=== PATIENT | female | born 1955 | race Caucasian/White ===

== ENCOUNTER 2021-11-30 13:23 | Emergency (ER) | payer MEDICARE, SELFPAY ==
[2021-11-30] VITALS (12 sets, daily range): BP systolic 116–163; BP diastolic 57–98; PULSE 62–110; RESP 18–24; TEMP 36.6; O2SAT 89–100; BMI 30.1
--- NOTE | 2021-11-30 13:52 | XR_ITS ---
WS: [email or web address] Exam: XR chest 1V portable [id number] Date/Time of Exam: 11/30/2021 1:52 PM Reason For Exam: dyspnea No priors. Cardiac enlargement with increased pulmonary vascularity. Small bibasal pleural effusions are noted m ost marked on the left. The lungs are fully inflated. The mediastinum and osseous thorax are unremark able. XR/XR chest 1V portable [id number] IMPRESSION: 1. Mild cardiac enlargement with increased pulmonary vascularity. Bibasal pleur al effusions. Mild CHF considered likely.
--- NOTE | 2021-11-30 13:52 | ECG_ITS ---
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 Measurements Intervals [place] Rate: 100 P: 81 AL: 127 QRS: 71 QRSD: 118 T: 225 QT: 335 QTc: 433 Interpretive Statements SINUS TACHYCARDIA POSSIBLE LEFT ATRIAL ENLARGEMENT [-0.1mV P-WAVE IN V1/V2] ANTEROSEPTAL MYOCARDIAL INFARCTION , PROBABLY OLD [40+ ms Q WAVE IN V1-V4] MODERATE T-WAVE ABNORMALITY, CONSIDER LATERAL ISCHEMIA [-0.1+ mV T-WAVE IN I/aVL/V5/V6] MODERATE T-WAVE ABNORMALITY, CONSIDER INFERIOR ISCHEMIA [-0.1+ mV T-WAVE IN II/aVF] No previous ECG available for comparison Electronically Signed On 11-30-2021 17:23:43 CDT by Matteo Hahn M.D. [id number]
--- NOTE | 2021-11-30 14:27 | ED_ITS ---
HPI - General Adult General: Chief complaint: Shortness of Breath/Dyspnea Stated complaint: Short of breath Time Seen by Provider: 11/30/21 13:52 History of Present Illness: Patient is a 65-year-old female states emergency room 2 weeks of worsening dyspnea and nonproductive cough. Patient tells me that she has been having muscle aches in the last few days. Patient reports sore throat nasal congestion but denies any chest pain, palpitation, abdominal complaints, diarrhea, melena/hematochezia. In route, patient was noted to have an oxygen O2 sat of 89% on room air. However patient never used oxygen. Onset:1 week Duration:1 week Location:[facility] Severity:mild/moderate Associated symptoms: Reports dyspnea; Deny chest pain, nausea, rash, palpitations or vomiting Review of Systems Const: Denies: fever(s) or chills Eyes: Denies: change in vision ENMT: Denies: mouth pain Card: Denies: chest pain or palpitations Resp: Reports: dyspnea and non-productive cough GI: Denies: abdominal pain, nausea, vomiting or diarrhea : Denies: dysuria Musc: Denies: extremity pain Skin/Breast: Denies: rash or new lesions Neuro: Denies: weakness in extremities Psych: Reports: other (Normal mood) Alonzo/Lymph: Denies: easy bruising PFSH ED PFSH: Medical History No pertinent past medical history Social History Smoking and tobacco status: never smoked Alcohol intake: never Substance/Drug Use: never Physical Exam Const: COMMON NORMALS: alert HENMT: COMMON NORMALS: atraumatic HEAD & SCALP: atraumatic MOUTH: moist mucous membranes not abnormal Eye: COMMON NORMALS: EOMs intact bilaterally and conjunctivae normal CONJUNCTIVA: Yes conjunctivae normal Neck/C-Spine: COMMON NORMALS: full ROM and supple Resp: COMMON NORMALS: normal respiratory effort OTHER: + mild b/l expiratory w heezes Cardio: COMMON NORMALS: regular rate RATE: regular rate GI: COMMON NORMALS: Soft to palpation and non-tender PALPATION: Yes Soft to palpation Extremity: COMMON NORMALS: full ROM Neuro: SENSORIUM/ORIENTATION: Yes alert MOTOR EXAM: No Abnormal motor strength present and Other motor observations present (no focal motor deficits) Psych: COMMON NORMALS: speech normal SPEECH: Yes normal speech MOOD & AFFECT: Yes euthymic mood Course Vital Signs: Vital signs: Vital Signs Temperature 97.8 F 11/30/21 13:48 Pulse Rate 97 11/30/21 18:44 Respiratory Rate 18 11/30/21 18:44 Blood Pressure 131/64 11/30/21 18:30 Pulse Oximetry 93 11/30/21 18:44 MDM - General Adult Medical Decision Making 65-year-old female presenting to the emergency with shortness of breath, cough and concerns for hypoxemia. On physical exam, patient noted to be satting at 93% on room air in the ER with mild bilateral wheezes with mild increased work of breathing. Troponin x2 within normal limit. EKG x2 within normal limit. Given the fact that patient continues to be tachycardic, decision was made to order CTA for evaluation of PE. However, at 6:58 PM, prior to obtaining the CT scan, patient declined further evaluation and elects to go home. I explained to the patient the risks of leaving against medical advice which includes sudden respiratory decompensation and even possible . However patient elects to continue to do so. Since patient she was to like to go home, I will give patient a prescription for albuterol and prednisone given worsening cough and dyspnea. She tells me that she will fall come back to the emergency room if her dyspnea gets worse. Rx albuterol inhaler and prednisone PRN dyspean and cough Patient electing to leave AMA. Patient counseled regarding risks of leaving including severe morbidity, brain , hypoxia, arrythmia, , chest pain, or any other unwanted consequences of leaving against medical advice today. Berna gonzalez verbalizes understanding of the risks and still wishes to leave AMA. Signed AMA paperwork. Patient advised that patient is welcome to return at any time. Was instructed that patient may come back if symptoms continue to persist and that emergent adverse conditions have not fully been ruled out. Patient is A&Ox3 and has capacity and is of sound mind to make decisions. Lab Data : 11/30/21 14:35 11/30/21 15:25 Radiology Impressions Chest X-Ray 11/30/21 13:52 IMPRESSION: 1. Mild cardiac enlargement with increased pulmonary vascularity. Bibasal pleural effusions. Mild CHF considered likely. Laboratory Results WBC 10.0 10^3/uL (4.0-10.0) 11/30/21 14:35 RBC 4.42 10^6/uL (4.1-5.3) 11/30/21 14:35 Hgb 13.2 g/dL (11.5-15.3) 11/30/21 14:35 Hct 41.2 % (37.0-47.0) 11/30/21 14:35 MCV 93.2 fl (81-99) 11/30/21 14:35 MCH 29.9 pg (28.0-34.0) 11/30/21 14:35 MCHC 32.0 g/dL (30.0-36.0) 11/30/21 14:35 RDW 13.5 % (12.1-15.1) 11/30/21 14:35 Plt Count 365 10^3/cmm (130-400) 11/30/21 14:35 MPV 10.2 fL (7.4-10.4) 11/30/21 14:35 Neut % (Auto) 76.0 % 11/30/21 14:35 Lymph % (Auto) 14.6 % 11/30/21 14:35 [place] % (Auto) 8.1 % 11/30/21 14:35 Eos % (Auto) 0.4 % 11/30/21 14:35 Baso % (Auto) 0.4 % 11/30/21 14:35 Neut # (Auto) 7.59 10^3/uL (1.8-7.7) 11/30/21 14:35 Lymph # (Auto) 1.5 10^3/uL (0.8-4.8) 11/30/21 14:35 [place] # (Auto) 0.8 10^3/uL (0.2-0.9) 11/30/21 14:35 Eos # (Auto) 0.0 10^3/uL (0.0-0.8) 11/30/21 14:35 Baso # (Auto) 0.0 10^3/uL (0.0-0.1) 11/30/21 14:35 Nucleated RBC % (auto) 0 % 11/30/21 14:35 Nucleated RBCs # 0.0 /100WBC 11/30/21 14:35 Sodium 137 mmol/L (136-145) 11/30/21 15:25 Potassium 3.8 mmol/L (3.5-5.1) 11/30/21 15:25 Chloride 99 mmol/L (98-107) 11/30/21 15:25 Carbon Dioxide 27 mmol/L (22-29) 11/30/21 15:25 Anion Gap 14.8 (5-19) 11/30/21 15:25 BUN 4 mg/dL (8-23) L 11/30/21 15:25 Creatinine 0.5 mg/dL (0.5-0.9) 11/30/21 15:25 GFR Calculation 123.1 mL/min (90-130) 11/30/21 15:25 Glucose 92 mg/dL (65-115) 11/30/21 15:25 Calculated Osmolality 281 mOsm/kg (285-295) L 11/30/21 15:25 Calcium 9.1 mg/dL (8.5-10.5) 11/30/21 15:25 Troponin T Baseline 9 ng/L (0-10) 11/30/21 15:25 Troponin T 120 Minute 8.24 ng/L (0-10) 11/30/21 17:08 Delta Troponin T -0.76 ABS# (0-10) L 11/30/21 17:08 C-Reactive Protein 91.0 mg/L (0.0-4.9) H 11/30/21 15:25 NT-Pro-B Natriuret Pep 275 pg/mL (0-125) H 11/30/21 15:25 Procalcitonin 0.08 ng/mL (0-0.5) 11/30/21 15:25 Nasal Influ A H1 2009 PCR Not detected (NOT DETECT) 11/30/21 14:55 Adenovirus (PCR) Not detected (NOT DETECT) 11/30/21 14:55 C. pneumoniae DNA (PCR) Not detected (NOT DETECT) 11/30/21 14:55 Coronavirus 229E (PCR) Not detected (NOT DETECT) 11/30/21 14:55 Human Metapneumovir PCR Not detected (NOT DETECT) 11/30/21 14:55 Influenza A (H1) PCR Not detected (NOT DETECT) 11/30/21 14:55 Influenza A (H3) PCR Not detected (NOT DETECT) 11/30/21 14:55 Influenza Type A (PCR) Not detected (NOT DETECT) 11/30/21 14:55 Influenza Type B (PCR) Not detected (NOT DETECT) 11/30/21 14:55 M. pneumoniae (PCR) Not detected (NOT DETECT) 11/30/21 14:55 Parainfluenza 1 (PCR) Not detected (NOT DETECT) 11/30/21 14:55 Parainfluenza 2 (PCR) Not detected (NOT DETECT) 11/30/21 14:55 Parainfluenza 3 (PCR) Not detected (NOT DETECT) 11/30/21 14:55 Parainfluenza 4 (PCR) Not detected (NOT DETECT) 11/30/21 14:55 RSV Type A (PCR) Not detected (NOT DETECT) 11/30/21 14:55 RSV Type B (PCR) Not detected (NOT DETECT) 11/30/21 14:55 Entero/Rhino (PCR) Not detected (NOT DETECT) 11/30/21 14:55 SARS-CoV-2 (PCR) Not detected (NOT DETECT) 11/30/21 14:55 Imaging Data Other Imaging: Radiologist's impression: [place] [id number] XRay Report Signed Patient: Tashi Scott Unit #: [id number] : 1955 Age/Sex: 65 / F ADM Date: 11/30/21 Loc: ER Room/Bed: Attending Dr: Ordering Provider/Ordering MD: Qasim Campa MD Date of Service: 11/30/21 Procedure(s): XR chest 1V portable [id number] Accession Number(s): [id number] Report Number: [id number] WS: [email or web address] Exam: XR chest 1V portable [id number] Date/Time of Exam: 11/30/2021 1:52 PM Reason For Exam: dyspnea No priors. Cardiac enlargement with increased pulmonary vascularity. Small bibasal pleural effusions are noted most marked on the left. The lungs are fully inflated. The mediastinum and osseous thorax are unremarkable. XR/XR chest 1V portable [id number] IMPRESSION: 1. Mild cardiac enlargement with increased pulmonary vascularity. Bibasal pleural effusions. Mild CHF considered likely. ? Dictated By: Roberto Carney DO Signed By: Roberto Carney DO Signed Date/Time: 11/30/211419 DD/ 17 Discharge Plan Discharge Patient Disposition: Left Against Medical Advice Clinical Impression: Acute dyspnea, Cough Condition: Stable Prescriptions: New albuterol sulfate 90 mcg/actuation HFA aerosol inhaler 2 inh inhalation Q4H PRN (Reason: shortness of breath or wheezing) 5 Days Qty: 6.7 0RF prednisone 50 mg tablet 50 mg PO DAILY PRN (Reason: copd exacerbation) 5 Days Qty: 5 0RF No Action Chlor-Tablet 4 mg Tablet 8 mg PO Q4H PRN (Reason: Allergy Symptoms) 0RF Tylenol Ex Str Rapid Release 500 mg Tablet 1,000 mg PO Q6H PRN (Reason: Pain) 0RF ibuprofen 200 mg Tablet 600 - 800 mg PO Q6H PRN (Reason: Pain) 0RF phenylephrine HCl 10 mg Tablet 20 mg PO .EVERY 4-8 HOURS PRN (Reason: Sinus Symptoms) 0RF Coding Level of Care Code ED Call Worker Person for Chg Fwd Exam Comprehensive
[2021-11-30 14:47] LABS: Basophils % 0.4 %; Eosinophils % 0.4 %; Hematocrit 41.2 % (37.0-47.0); Hemoglobin 13.2 g/dL (11.5-15.3); Lymphocytes # 1.5 10^3/uL (0.8-4.8); Lymphocytes % 14.6 %; Mean Corpuscular Hemoglobin 29.9 pg (28.0-34.0); Mean Corpuscular Volume 93.2 fl (81-99); Mean Platelet Volume 10.2 fL (7.4-10.4); Monocytes # 0.8 10^3/uL (0.2-0.9); Monocytes % 8.1 %; Neutrophils # 7.59 10^3/uL (1.8-7.7); Nucleated Red Blood Cells % 0 %; Platelet Count 365 10^3/cmm (130-400); Red Blood Count 4.42 10^6/uL (4.1-5.3); Red Cell Distribution Width 13.5 % (12.1-15.1)
--- NOTE | 2021-11-30 15:52 | ECG_ITS ---
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 Measurements Intervals [place] Rate: 100 P: 85 AK: 131 QRS: 75 QRSD: 118 T: 235 QT: 344 QTc: 444 Interpretive Statements SINUS TACHYCARDIA POSSIBLE LEFT ATRIAL ENLARGEMENT [-0.1mV P-WAVE IN V1/V2] ANTEROSEPTAL MYOCARDIAL INFARCTION , PROBABLY OLD [40+ ms Q WAVE IN V1-V4] MODERATE T-WAVE ABNORMALITY, CONSIDER LATERAL ISCHEMIA [-0.1+ mV T-WAVE IN I/aVL/V5/V6] MODERATE T-WAVE ABNORMALITY, CONSIDER INFERIOR ISCHEMIA [-0.1+ mV T-WAVE IN II/aVF] Compared to ECG 11/30/2021 14:01:53 No significant changes Electronically Signed On 11-30-2021 17:26:54 CDT by Matteo Hahn M.D. [id number]
[2021-11-30 16:13] LABS: Troponin(5th) Baseline 9 ng/L (0-10)
[2021-11-30 16:19] LABS: NT Pro B Type Natriuretic Pept 275 pg/mL (0-125); Procalcitonin 0.08 ng/mL (0-0.5)
[2021-11-30 16:31] LABS: Anion Gap 14.8 (5-19); Blood Urea Nitrogen 4 mg/dL (8-23); Calcium 9.1 mg/dL (8.5-10.5); Carbon Dioxide 27 mmol/L (22-29); Chloride 99 mmol/L (98-107); Creatinine Clr Calc Pharmacy 67.0963; Glomerular Filtration Rate 123.1 mL/min (90-130); Glucose 92 mg/dL (65-115); Osmolality Calculated 281 mOsm/kg (285-295); Potassium 3.8 mmol/L (3.5-5.1); Sodium 137 mmol/L (136-145)
[2021-11-30 16:48] LABS: Adenovirus Not Detected (NOT DETECT); Chlamydia Pneumoniae Not Detected (NOT DETECT); Coronavirus 229E,HKU1,NL63,OC4 Not Detected (NOT DETECT); Human Metapneumovirus Not Detected (NOT DETECT); Human Rhinovirus/Enterovirus Not Detected (NOT DETECT); Influenza A Not Detected (NOT DETECT); Influenza A H1 Not Detected (NOT DETECT); Influenza A H1-2009 Not Detected (NOT DETECT); Influenza A H3 Not Detected (NOT DETECT); Influenza B Not Detected (NOT DETECT); Mycoplasma Pneumoniae Not Detected (NOT DETECT); Parainfluenza Virus Type 1 Not Detected (NOT DETECT); Parainfluenza Virus Type 2 Not Detected (NOT DETECT); Parainfluenza Virus Type 3 Not Detected (NOT DETECT); Parainfluenza Virus Type 4 Not Detected (NOT DETECT); Respiratory Syncytial Virus A Not Detected (NOT DETECT); Respiratory Syncytial Virus B Not Detected (NOT DETECT); SARS-COV-2 Not Detected (NOT DETECT)
[2021-11-30] MEDS: sodium chloride 0.9% 500 ML IV (16:50)
[2021-11-30 18:11] LABS: Troponin 5 2HR 8.24 ng/L (0-10)
[2021-11-30 18:36] LABS: Troponin 5 2HR Delta -0.76 ABS# (0-10)
[2021-11-30] MEDS: ipratropium-albuterol 3 mL Neb INHALATION (18:45)
== END 2021-11-30 19:03 | disposition left against medical advice (07) ==
PROVIDERS: Emergency Provider Emergency Medicine
DX: R06.00 Dyspnea, unspecified (principal); R05.9 Cough, unspecified
CPT/HCPCS: 71045; 80048; 83880; 84145; 84484; 85025; 86140; 87486; 87581; 87633; 93005; 94640; 96361; 96374; 99285; J2930; J7040

== ENCOUNTER 2021-12-03 12:27 | Outpatient (CLI) | payer MEDICARE, SELFPAY ==
--- NOTE | 2021-12-03 12:36 | XR_ITS ---
WS: [email or web address] Exam: XR chest 2V* [id number] Date/Time of Exam: 12/03/2021 12:37 PM Reason For Exam: DYSPNEA Comparison 11/30/2021. Bibasal pleural effusions show slight improvement since the prior study. Mild c ardiac enlargement unchanged. Areas of plaque atelectasis in the right and left lower lung zones. Coa rse interstitial markings and possible honeycombing seen in the upper lung zones. Bony structures are intact. The mediastinum is not widened. XR/XR chest 2V* [id number] IMPRESSION: 1. Slightly improved bibasal pleural effusions. 2. Mild cardiac enlargement unchanged. Areas of plaque atelectasis in the bilat eral lower lung zones. 3. Coarsening of interstitial markings and possible honeycombing in the upper l corie zones. CT scanning of the chest might be helpful for a more detailed workup .
== END 2021-12-03 12:28 | disposition home or self-care (01) ==
LOC: RAD 12:30
PROVIDERS: PCP Nurse Practitioner Family; Visit Provider Nurse Practitioner Family
DX: J90 Pleural effusion, not elsewhere classified (principal); I51.7 Cardiomegaly
CPT/HCPCS: 71046

== ENCOUNTER 2021-12-04 12:02 | Outpatient (CLI) | payer MEDICARE, SELFPAY ==
--- NOTE | 2021-12-04 12:13 | CT_ITS ---
WS: [id number] CT CHEST ANGIOGRAPHY WITH REFORMATS HISTORY: DYSPNEA TECHNIQUE: Contiguous axial images are obtained through the chest during arterial injection of intrav enous contrast. Images are reconstructed to evaluate the pulmonary arteries. MIP imaging also reviewe d. All CT scans at [facility] use at least one of these dose optimization techniques: automat ed exposure control; mA and/or kV adjustment per patient size (includes targeted exams where dose is matched to clinical indication); or iterative reconstruction. CONTRAST: Omnipaque 300; 95 mL IV. DLP: 568.01 mGy.cm COMPARISON: None available. Very good opacification of the pulmonary arteries. No filling defect or pulmonary embolism. Normal si ze pulmonary artery. Mild atherosclerotic plaque within the thoracic aorta. There is no RIGHT heart s train. Normal size heart. There is a small but circumferential pericardial effusion. Small bilateral pleural effusions are also present with pulmonary venous congestion. Compressive atelectasis at the L EFT lung base. No adenopathy. Very mildly prominent lymphoid tissue at the hilar regions. No adrenal nodule. Visualized upper abdomen is negative. CT/CT angio chest PE protcl [id number] IMPRESSION: 1. No pulmonary embolism. 2. Small bilateral pleural effusions, LEFT greater than RIGHT. 3. Small circumferential pericardial effusion 4. Mild pulmonary venous congestion. 5. Subsegmental atelectasis at the lung bases. Notified DONN Love at 12/04/2021 1:40 PM.
[2021-12-04] MEDS: iohexol 350 mg/mL 100 mL Btl IV (13:05)
== END 2021-12-04 12:03 | disposition home or self-care (01) ==
LOC: RAD 12:05
PROVIDERS: PCP Nurse Practitioner Family; Visit Provider Nurse Practitioner Family
DX: R06.00 Dyspnea, unspecified (principal); J90 Pleural effusion, not elsewhere classified; J98.11 Atelectasis
CPT/HCPCS: 71275

== ENCOUNTER 2021-12-21 09:01 | Outpatient (CLI) | payer MEDICARE, SELFPAY ==
--- NOTE | 2021-12-21 09:15 | USCV_ITS ---
Tashi Scott Age: 66 Gender: F : 1955 Exam Date: 12/21/2021 09:38 Ordering Phys: Jaki Marley Technologist: MARIBEL Exam Location: [facility] [place] Indication: Dyspnea/CHF BP: 127 / 76 HR: 98 Rhythm: Sinus Technical Quality: Difficult MEASUREMENTS (Male / Female) Normal Values 2D ECHO LV Diastolic Diameter PLAX 4.2 cm 4.2 - 5.9 / 3.9 - 5.3 cm LV Systolic Diameter PLAX 3.2 cm IVS Diastolic Thickness 0.8 cm 0.6 - 1.0 / 0.6 - 0.9 cm IVS Systolic Thickness 1.2 cm LVPW Diastolic Thickness 0.9 cm 0.6 - 1.0 / 0.6 - 0.9 cm LVPW Systolic Thickness 1.3 cm RV Chamber Size 1.8 cm LVOT Diameter 2.0 cm LV Ejection Fraction 2D Teich 47.9 % LV Ejection Fraction MOD 2C 50.7 % LV Ejection Fraction 2C AL 54.3 % LA Diameter 1.9 cm LA Width 2.4 cm LA Height 3.5 cm RA Width 2.2 cm RA Height 2.9 cm Aorta at Sinotubular Diameter 2.0 cm IVC Diameter 1.5 cm M-MODE Aortic Annulus Diameter 2.2 cm LA Ao Ratio MM 0.7 MV E Point Septal Separation 0.3 cm DOPPLER AV Peak Velocity 120.0 cm/s LVOT Peak Velocity 110.0 cm/s AV Area Cont Eq vti 3.1 cm squared AV Area Cont Eq pk 2.9 cm squared MV Area PHT 3.6 cm squared Mitral E to A Ratio 0.7 MV E' Velocity 33.0 cm/s Mitral E to MV E' Ratio 6.7 Mitral E to LV E' Lateral Ratio 7.6 Mitral E to LV E' Septal Ratio 6.1 TR Peak Velocity 251.0 cm/s TR Peak Gradient 25.2 mmHg Right Atrial Pressure 3.0 mmHg Pulmonary Artery Systolic Pressu 28.2 mmHg PV Peak Velocity 111.0 cm/s RV Acceleration Time 0.2 s RV Ejection Time 0.2 s RV AcT/ET 0.8 FINDINGS Left Ventricle Technically limited quality echocardiogram because of poor ultrasonic windows. Grossly LV systolic function is normal. Regional wall motion abnormalities cannot be assessed because of poor ultrasonic windows. Grade 1 diastolic dysfunction Right Ventricle Grossly normal Right Atrium Grossly normal. There is an echogenic structure seen in right atrium. Likely artifact. Left Atrium Grossly normal Mitral Valve Grossly normal. Trace mitral regurgitation Aortic Valve Not well-visualized. Tricuspid Valve Grossly normal. Mild tricuspid regurgitation. Pulmonic Valve Not well-visualized Pericardium Normal pericardium without effusion. Aorta Normal ascending aorta dimension. IVC CONCLUSIONS Technically limited quality echocardiogram because of poor ultrasonic windows. Grossly LV systolic function is normal. Grade 1 diastolic dysfunction. There is an echogenic structure seen in right atrium. This is likely artifact. Trace mitral regurgitation. Mild tricuspid regurgitation. No comparison studies are available Matteo Hahn MD (Electronically Signed) Final Date: 25 December 2021 22:55 S
== END 2021-12-21 09:02 | disposition home or self-care (01) ==
LOC: RAD 09:03
PROVIDERS: PCP Nurse Practitioner Family; Visit Provider Nurse Practitioner Family
DX: I50.9 Heart failure, unspecified (principal); R06.00 Dyspnea, unspecified
CPT/HCPCS: 93306

== ENCOUNTER 2022-01-05 10:34 | Outpatient (CLI) | payer MEDICARE, SELFPAY ==
--- NOTE | 2022-01-05 10:58 | MM_ITS ---
WS: [email or web address] SCREENING DIGITAL BREAST TOMOSYNTHESIS MAMMOGRAM WITH CAD HISTORY: SCREENING COMPARISON: 08/03/2018 Bilateral CC and MLO with tomosynthesis views submitted. Synthetic mammography reviewed. Computer aid ed detection analyzed. Breast composition: There are scattered areas of fibroglandular density. No suspicious masses, microc alcifications or architectural distortion. MM/[place] [id number] IMPRESSION: BI-RADS: 1-Negative FOLLOW UP: 1 Year Follow-up
--- NOTE | 2022-01-05 14:08 | PFTS_ITS ---
Date of Study:01/05/22 Date of Dictation: 01/09/22 MECHANICS: Postbronchodilator forced vital capacity (FVC) is reduced. Postbronchodilator forced expiratory volume in one second (FEV1) is severely reduced. FEV1/FVC is reduced. There is no significant response to bronchodilator FLOW VOLUME LOOP: Sloping of expiratory limb suggestive of airflow obstruction. LUNG VOLUMES: not measured DIFFUSING CAPACITY FOR CARBON MONOXIDE: not measured INTERPRETATION: The Spirometry showed severe airflow obstruction. There is no significant response to bronchodilators. Lung volume and Gas transfer measurement may give additional information to rule out entities like emphysema. Correlate Clinically. MTDD
== END 2022-01-05 10:35 | disposition home or self-care (01) ==
LOC: RAD 10:35
PROVIDERS: PCP Nurse Practitioner Family; Visit Provider Nurse Practitioner Family
DX: Z12.31 Encounter for screening mammogram for malignant neoplasm of breast (principal)
CPT/HCPCS: 77063; 77067; 94060

== ENCOUNTER → 2022-02-09 14:01 | Outpatient (BNVA) | payer MEDICARE, SELFPAY | PROVIDERS: PCP Nurse Practitioner Family; Visit Provider Internal Medicine Pulmonary Disease | DX: R06.09 Other forms of dyspnea (principal); J43.9 Emphysema, unspecified; R53.81 Other malaise; Z71.6 Tobacco abuse counseling; J30.9 Allergic rhinitis, unspecified; F17.210 Nicotine dependence, cigarettes, uncomplicated | CPT/HCPCS: 36415; 80053; 82103; 82785; 83880; 85025; 86003; 99204 ==

== ENCOUNTER 2022-04-06 15:08 | Outpatient (CLI) | payer MEDICARE, SELFPAY ==
--- NOTE | 2022-04-06 15:18 | XR_ITS ---
WS: [email or web address] Exam: XR ribs RT 2V* [id number] Date/Time of Exam: 04/06/2022 3:30 PM Reason For Exam: R SIDED RIB PAIN No sign of acute right rib fracture. The right lung is fully expanded and clear. No pulmonary or pleu ral reactive changes are noted. XR/XR ribs RT 2V* [id number] IMPRESSION: 1. No acute right rib fracture or pneumothorax
== END 2022-04-06 15:09 | disposition home or self-care (01) ==
LOC: RAD 15:10
PROVIDERS: PCP Nurse Practitioner Family; Visit Provider Nurse Practitioner Family
DX: R07.81 Pleurodynia (principal)
CPT/HCPCS: 71100

== ENCOUNTER 2023-04-15 12:10 | Outpatient (CLI) | payer MEDICARE, SELFPAY ==
--- NOTE | 2023-04-15 12:22 | XR_ITS ---
WS: [email or web address] DEXA (DUAL ENERGY X-RAY ABSORPTIOMETRY) Bone mineral density was performed using a Control4 machine. HISTORY: OSTEOPOROSIS COMPARISON: None available. Lumbar spine BMD (L1-L4): 0.923 g/cm2 T score: -2.1 Z score: -0.5 Total hip BMD: Left: 0.710 g/cm2. T score: -2.4 Z score: -1.0 Right: 0.695 g/cm2. T score: -2.5 Z score: -1.1 10 year probability of a major osteoporotic fracture is 17.2%. IMPRESSION: OSTEOPOROSIS based upon the WHO classification for females.
--- NOTE | 2023-04-15 13:01 | CT_ITS ---
WS: [email or web address] LDCT LUNG CANCER SCREENING HISTORY: NICOTINE DEPENDENCE, CIGARETTES TECHNIQUE: Axial imaging performed from the apices to 1 cm below the costophrenic angles. Coronal and sagittal reformats are submitted with axial MIP series. All CT scans at [facility] use at least one of these dose optimization techniques: automated exposure control; mA and/or kV adjustment per patient size (includes targeted exams where dose is matched to clinical indication); or iterativ e reconstruction. DLP: 63.90 mGy.cm DIvol: Mean CTDIvol: 1.30 (mGy) COMPARISON: 12/04/2021 Diagnostic quality: Satisfactory Lungs: Hyperinflated lungs. Peripheral reticular nodular thickening in the periphery of the upper neva g roberts. Emphysematous bullous disease. Benign granuloma at the LEFT lung base. No consolidation. No mass or nodules. Heart: Normal size heart with no pericardial effusion.. Other findings: Small mediastinal and hilar lymph nodes. Moderate coronary artery calcifications. IMPRESSION: CT/CT lung screening [id number] LUNG-RADS: 2-Benign Appearance or Behavior FOLLOW UP: 12 Month: Continue annual screening with LDCT OTHER FINDINGS (S MODIFIER): None.
--- NOTE | 2023-04-15 13:03 | MM_ITS ---
WS: [email or web address] BILATERAL 3D TOMOSYNTHESIS DIGITAL SCREENING MAMMOGRAPHY WITH CAD CLINICAL INFORMATION: SCREENING HISTORY: Screening mammogram. No current complaints. COMPARISON: 2021 TECHNIQUE: Bilateral CC and MLO views. FINDINGS: Scattered fibroglandular densities bilaterally. No suspicious focal mass, asymmetry, calcifications, or architectural distortion. No evidence of malignancy. IMPRESSION: MM/[place] [id number] BI-RADS: 1-Negative FOLLOW UP: 1 Year Follow-up Recommend return to annual screening mammography.
== END 2023-04-15 12:11 | disposition home or self-care (01) ==
PROVIDERS: PCP Nurse Practitioner Family; Visit Provider Nurse Practitioner Family
DX: Z12.31 Encounter for screening mammogram for malignant neoplasm of breast (principal); Z78.0 Asymptomatic menopausal state; F17.210 Nicotine dependence, cigarettes, uncomplicated; Z12.2 Encounter for screening for malignant neoplasm of respiratory organs
CPT/HCPCS: 71271; 77063; 77067; 77080

== ENCOUNTER → 2023-04-21 11:10 | Outpatient (BNVA) | payer MEDICARE, SELFPAY | PROVIDERS: PCP Nurse Practitioner Family; Visit Provider Internal Medicine Pulmonary Disease | DX: J43.9 Emphysema, unspecified (principal); Z71.6 Tobacco abuse counseling; J30.2 Other seasonal allergic rhinitis; F17.210 Nicotine dependence, cigarettes, uncomplicated; Z12.2 Encounter for screening for malignant neoplasm of respiratory organs | CPT/HCPCS: 99214 ==

== ENCOUNTER → 2023-08-05 08:32 | Outpatient (BNVA) | payer MEDICARE, SELFPAY | PROVIDERS: PCP Nurse Practitioner Family; Visit Provider Student in an Organized Health Care Education/Training Program | DX: M67.432 Ganglion, left wrist; M18.12 Unilateral primary osteoarthritis of first carpometacarpal joint, left hand | CPT/HCPCS: 73110; 99204 ==

== ENCOUNTER → 2023-11-03 08:27 | Outpatient (BNVA) | payer MEDICARE, SELFPAY | PROVIDERS: PCP Nurse Practitioner Family; Visit Provider Internal Medicine Pulmonary Disease | DX: J44.9 Chronic obstructive pulmonary disease, unspecified (principal); J43.9 Emphysema, unspecified; R06.09 Other forms of dyspnea; T78.40XA Allergy, unspecified, initial encounter; R53.81 Other malaise; Y99.9 Unspecified external cause status; F17.210 Nicotine dependence, cigarettes, uncomplicated; Z71.6 Tobacco abuse counseling | CPT/HCPCS: 99214 ==

== ENCOUNTER → 2023-12-01 08:57 | Outpatient (BNVA) | payer MEDICARE, SELFPAY | PROVIDERS: PCP Nurse Practitioner Family; Visit Provider Internal Medicine Rheumatology | DX: Z79.899 Other long term (current) drug therapy (principal); M81.0 Age-related osteoporosis without current pathological fracture; M15.9 Polyosteoarthritis, unspecified; M47.812 Spondylosis without myelopathy or radiculopathy, cervical region; M47.816 Spondylosis without myelopathy or radiculopathy, lumbar region | CPT/HCPCS: 99204 ==

== ENCOUNTER 2025-02-26 14:55 | Outpatient (CLI) | payer MEDICARE, SELFPAY ==
--- NOTE | 2025-02-26 14:59 | CT_ITS ---
WS: [email or web address] LDCT LUNG CANCER SCREENING TECHNIQUE: Noncontrast CT of the chest with coronal and sagittal reformatted images. CLINICAL INFORMATION: NICOTINE DEPENDENCE, CIGARETTES COMPARISON: None. DLP: 61.90 mGy.cm DIvol: Mean CTDIvol: 1.10 (mGy) All CT scans at [facility] use at least one of these dose optimization techniques: automated exposure control; mA and/or kV adjustment per patient size (includes targeted exams where dose is matched to clinical indication); or iterative reconstruction. FINDINGS: New spiculated irregular lesion in the LEFT upper lobe anteriorly extending to the pleura suspicious for neoplasm. This measures approximately 2.1 x 0.8 cm. This has a suspicious appearance and recommend further evaluation with PET/CT. Nodular fibrosis in the LEFT lung apex similar to previous. Small 4 mm pleural- based nodule LEFT upper lobe anterolaterally Advanced chronic emphysematous change. Calcified granulomas LEFT lower lobe. No mediastinal or hilar lymphadenopathy. No axillary lymphadenopathy. Aortic calcification. Coronary calcification. Small esophageal hiatal hernia. CT/CT lung screening [id number] IMPRESSION: New suspicious spiculated lesion LEFT upper lobe anteriorly. Neoplasm not exclu ded. Recommend further evaluation with PET/CT. LUNG-RADS: 4B-Suspicious FOLLOW UP: PET/CT recommended
== END 2025-02-26 14:56 | disposition home or self-care (01) ==
LOC: RAD 14:57
PROVIDERS: PCP Nurse Practitioner Family; Visit Provider Nurse Practitioner Family
DX: Z12.2 Encounter for screening for malignant neoplasm of respiratory organs (principal); R91.1 Solitary pulmonary nodule; J84.10 Pulmonary fibrosis, unspecified; F17.210 Nicotine dependence, cigarettes, uncomplicated
CPT/HCPCS: 71271

== ENCOUNTER 2025-03-22 08:41 | Outpatient (CLI) | payer MEDICARE, SELFPAY ==
--- NOTE | 2025-03-22 08:59 | PETR_ITS ---
PROCEDURE INFORMATION: Exam: PET/CT Skull Base to Mid-thigh Exam date and time: 03/22/2025 9:50 AM Age: 69 years old Clinical indication: Abnormal findings; New suspicious spiculated lesion left upper lobe anteriorly. ; Additional info: Abnormal CT chest LABS AND CLINICAL REPORTS: Glucose: 105 mg/dl Treatment strategy for malignancy (PET staging): Initial Staging (PI) TECHNIQUE: Imaging protocol: Following at least four-hour fasting and following the injection of radiopharmaceutical, low dose CT images were obtained. Then, PET images were obtained. Attenuation corrected images were constructed using the CT scan. Fused images of PET and CT were reviewed. The standardized uptake values (SUV) reported below are maximum values within a region of interest, expressed in gm/ml. Exam includes orbital meatal line to mid-thigh. SUV normalization method: BodyWeight Radiopharmaceutical: 10.2 mCi F-18 FDG (Fluorodeoxyglucose), IV. Time of imaging post radiopharmaceutical administration: 49 minutes Injection site: LAC COMPARISON: 1. CT lung screening [id number] 04/15/2023 1:[address] lung screening [id number] 02/26/2025 3:05 PM FINDINGS: Brain: Visualized brain has normal physiologic uptake. Pharynx: No abnormal uptake. Larynx: No abnormal uptake. Lungs, pleura and trachea: Advanced upper lung predominant emphysematous change. Approximately 2 cm spiculated anterior left upper lobe nodule on axial image 77 shows SUV max 23.0. Stable non FDG avid nodular left apical pleural-parenchymal scarring. Calcified granulomata. Heart: Normal physiologic uptake. Coronary arteries: Heavy coronary artery calcification. Mediastinal space: No abnormal uptake. Diaphragm: Small hiatal hernia. Esophagus: Intermittent uptake along the esophagus greatest distally. Liver: No abnormal uptake. Gallbladder and biliary ducts: No abnormal uptake. Pancreas: No abnormal uptake. Spleen: No abnormal uptake. Adrenal glands: 1 cm left adrenal nodule stable from April 2023 shows low-level FDG uptake with SUV max 3.3 on axial image 155. No abnormal uptake on the right. Kidneys and ureters: Normal physiologic uptake. Stomach and bowel: Focal FDG uptake at the rectum without underlying CT abnormality shows SUV max 4.9 on axial image 228. Colonic diverticulosis without findings of diverticulitis. Proximal duodenal diverticulum. Reproductive: The uterus is surgically absent. Vasculature: No abnormal uptake. Heavy systemic atherosclerotic calcification without aortic aneurysm. Lymph nodes: FDG uptake at calcified left hilar node showing SUV max 5.4 on axial image 101, stable CT appearance from April 2023. Note that couple of calcified mediastinal nodes are non FDG avid. Stable nonenlarged right hilar node shows low-level uptake with SUV max 2.9 on axial image 97. Skeleton: Degenerative changes along the spine, sacroiliac joints and hips. FDG uptake just lateral to the right greater trochanter without underlying CT abnormality is likely inflammatory. Soft tissues: No abnormal uptake in the visualized head, neck, chest, abdomen, pelvis, and extremities. Moderate fat containing supraumbilical hernia and small fat containing umbilical hernia. METRICS: Mediastinal blood pool: SUV mean 2.3 Liver uptake: SUV mean 2.6 PET/PET skull to thigh INIT [id number] IMPRESSION: 1. FDG avid 2 cm anterior left upper lobe nodule highly suspicious for malignancy. 2. FDG uptake at single calcified left hilar node (stable CT appearance) may be granulomatous, cannot exclude metastatic involvement. 3. Nonspecific lower level FDG uptake at stable nonenlarged right hilar lymph node. 4. Low-level uptake at stable 1 cm left adrenal nodule favors benign adenoma, metastatic involvement thought less likely. 5. Focal FDG uptake at the rectum without underlying CT abnormality is likely inflammatory, small neoplasm not excluded. 6. Esophageal uptake greatest distally suggestive of esophagitis. 7. Additional chronic and incidental findings as above.
== END 2025-03-22 08:42 | disposition home or self-care (01) ==
LOC: RAD 08:42
PROVIDERS: PCP Nurse Practitioner Family; Visit Provider Nurse Practitioner Family
DX: R91.8 Other nonspecific abnormal finding of lung field (principal)
CPT/HCPCS: 78815; A9552

== ENCOUNTER → 2025-04-08 15:00 | Outpatient (BNVA) | payer MEDICARE, SELFPAY | PROVIDERS: PCP Nurse Practitioner Family; Visit Provider Internal Medicine | DX: J43.9 Emphysema, unspecified (principal); R91.1 Solitary pulmonary nodule; J30.2 Other seasonal allergic rhinitis; F17.210 Nicotine dependence, cigarettes, uncomplicated | CPT/HCPCS: 99215 ==

== ENCOUNTER 2025-04-17 12:36 | Outpatient (CLI) | payer MEDICARE, SELFPAY ==
--- NOTE | 2025-04-17 12:43 | MM_ITS ---
WS: [id number] BILATERAL 3D TOMOSYNTHESIS DIGITAL SCREENING MAMMOGRAPHY WITH CAD CLINICAL INFORMATION: SCREENING MAMMOGRAM FOR BREAST CANCER HISTORY: Screening mammogram. No current complaints. COMPARISON: 2022 TECHNIQUE: Bilateral CC and MLO views. FINDINGS: Scattered fibroglandular densities bilaterally. No suspicious focal mass, asymmetry, calcifications, or architectural distortion. No evidence of malignancy. MM/MM scr tomosynthesis [id number] IMPRESSION: DENSITY: There are scattered areas of fibroglandular density. BI-RADS: 1 - Negative. FOLLOW UP: 1 Year Follow-up Recommend return to annual screening mammography.
--- NOTE | 2025-04-17 12:43 | XR_ITS ---
WS: [id number] DEXA (DUAL ENERGY X-RAY ABSORPTIOMETRY) Bone mineral density was performed using a [employer] machine. HISTORY: OSTEOPOROSIS COMPARISON: 04/15/2023 Lumbar spine BMD (L1-L4): 0.978 g/cm2 T score: -1.7 Z score: 0.0 Total hip BMD: Left: 0.739 g/cm2. T score: -2.1 Z score: -0.6 Right: 0.685 g/cm2. T score: -2.6 Z score: -1.0 10 year probability of a major osteoporotic fracture is 18.0%. Compared to the prior study from 04/15/2023. Lumbar spine bone mineral density has increased by 6.0%. Bilateral hips bone mineral density has increased by 1.4%. XR/XR DEXA axial skeleton* [id number] IMPRESSION: OSTEOPOROSIS based upon the WHO classification for females. Significant increase in bone mineral density of the lumbar spine since the prio r study. No significant change of bone mineral density in the hips.
== END 2025-04-17 12:37 | disposition home or self-care (01) ==
LOC: RAD 12:37
PROVIDERS: PCP Nurse Practitioner Family; Visit Provider Nurse Practitioner Family
DX: Z12.31 Encounter for screening mammogram for malignant neoplasm of breast (principal); Z13.820 Encounter for screening for osteoporosis; Z78.0 Asymptomatic menopausal state; R92.323 Mammographic fibroglandular density, bilateral breasts; M81.0 Age-related osteoporosis without current pathological fracture
CPT/HCPCS: 77063; 77067; 77080

== ENCOUNTER → 2025-05-13 13:37 | Outpatient (BNVA) | payer MEDICARE, SELFPAY | PROVIDERS: PCP Nurse Practitioner Family; Visit Provider Internal Medicine | DX: J43.9 Emphysema, unspecified (principal); R91.1 Solitary pulmonary nodule; J30.2 Other seasonal allergic rhinitis; F17.210 Nicotine dependence, cigarettes, uncomplicated | CPT/HCPCS: 99213; Q3014 ==

== ENCOUNTER → 2025-05-31 10:45 | Outpatient (BNVA) | payer MEDICARE, SELFPAY | PROVIDERS: PCP Nurse Practitioner Family; Visit Provider Internal Medicine | DX: J43.9 Emphysema, unspecified (principal); R91.1 Solitary pulmonary nodule; J30.2 Other seasonal allergic rhinitis; F17.210 Nicotine dependence, cigarettes, uncomplicated; J44.9 Chronic obstructive pulmonary disease, unspecified; D75.1 Secondary polycythemia | CPT/HCPCS: 99214; Q3014 ==

== ENCOUNTER 2025-06-04 08:34 | Oncology outpatient (recurring) (ONCR) | payer MEDICARE, SELFPAY | END 2025-06-09 23:59 | disposition home or self-care (01) | PROVIDERS: PCP Nurse Practitioner Family; Visit Provider Internal Medicine Medical Oncology | DX: C34.92 Malignant neoplasm of unspecified part of left bronchus or lung (principal) | CPT/HCPCS: 99205 ==

== ENCOUNTER 2025-07-01 13:56 | Oncology outpatient (recurring) (ONCR) | payer MEDICARE, SELFPAY ==
--- NOTE | 2025-06-12 10:51 | N.ONRAD NP_ITS ---
Radiation Oncology New Patient Visit Patient: Tashi Scott MR#: [id number] : 1955 Age: 69 Sex: Female Dictated by: Dr. Aurea Chavez Date of Service: 06/12/2025 Referring Physician(s) : Dr. Juarez Diagnosis: Non small cell lung cancer Stage I Left UL Radiotherapy to date: Summary > No prior radiation therapy. Chief Complaint / History of Present Illness: Pt is an 69 yo female who has recently been diagnosed with a non small cell lung cancer. She was undergoing screening CTs. PET confirmed activity in the mass in the [place]. Biopsy was positive. She is seen today in consultation to discuss SBRT. Current Medications: acetaminophen 1,000 mg PO Q6H PRN albuterol sulfate 90 mcg/actuation (Ventolin HFA) 2 puffs inhalation Q6H PRN alendronate (Fosamax) 70 mg PO .Q7days aspirin 81 mg PO DAILY atorvastatin 10 mg PO DAILY calcium carbonate- vitamin D3 600 mg-10 mcg (400 unit) (Calcium with Vitamin D) 1 tab PO BID chlorpheniramine maleate (ChlorTabs) 4 mg PO Q12H cholecalciferol (vitamin D3) 125 mcg PO DAILY coenzyme Q10 10 mg PO DAILY fluticasone propionate 50 mcg/actuation (Flonase Allergy Relief) 1 spray intranasal BID fluticasone- umeclidin-vilanter 100-62.5-25 mcg (Trelegy Ellipta) 1 inh inhalation DAILY hydrochlorothiazide 25 mg PO DAILY ibuprofen 600 - 800 mg PO Q6H PRN mecobalamin (vitamin B12) 1,000 mcg PO DAILY nicotine 1 patch transdermal DAILY oxybutynin chloride 5 mg PO BID Allergies: No Known Allergies Medical History: No history of collagen vascular disease. No previous radiation therapy. 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 Vital Signs: Performed on 06/12/2025 10:07 AM BMI - 25.013 kg/m2 (high), Height - 63 in, Weight - 141.2 lbs, Temperature - 97.1 f, Pulse - 78 /min, Respiration - 16 /min, O2 Sat - 100 %, Pain - 0, Fatigue - 0 and BP - 124/ 74 mm(hg). Physical Exam: General: Pt is sitting comfortably in chair. HEENT: NC/AT, PERRL, EOMI, sclera clear Pulm: respiratory rate is regular and in labored CV: RRR Abd: fairly flat with minimal adipose tissue Neuro: Alert and oriented, speech and gait within normal limits Psych: affect normal for situation Performance Status: 100 Pathology: NSCLC Lab: Imaging: See HPI Impression: Stage I NSCLC in [place] Plan: I reviewed the diagnosis and scans. We talked about the SBRT as a good and safe option. 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 She has a good understanding and has agreed to proceed. She will return to under go [facility] and begin treatments shortly thereafter, with a plan for 4 treatments over 2 week. Signed by: 06/12/2025 10:49:23 AM <<Signature on File>> Time spent with patient:45 CPT Code: CPT Code:
--- NOTE | 2025-07-01 14:40 | ONCRAD TMN_ITS ---
Radiation Oncology Weekly Treatment Management Patient: Tashi Scott MR#: [id number] : 1955 Attending Physician: Navdeep Ibarra Date of Service: 07/01/2025 Referring Physician(s) : Dr. Juarez Diagnosis: C34.12 - Malignant neoplasm of upper lobe, left bronchus or lung, Diagnosed 06/12/2025 (Active) Radiotherapy to date: Course: Left UL, Treatment Site: [facility] [facility] SBRT, Ref. ID: [id number], Energy: 6X, Dose/Fx (cGy): 1,200, #Fx: 3 / 4, Dose Correction (cGy): 0, Total Dose Delivered (cGy): 3,600, Start Date: 06/26/2025, Elapsed Days: 5 Reason for visit: The patient is being seen today as part of their regularly scheduled weekly on treatment visits to assess for acute toxicities from radiotherapy. Review of Systems: Patient denies any symptoms at this time. Patient specifically denies any hemoptysis or new productive cough. Vital Signs: Performed on 07/01/2025 2:22 PM BMI - 25.119 kg/m2 (high), Height - 63 in, Weight - 141.8 lbs, Temperature - 98.2 f, Pulse - 98 /min, Respiration - 18 /min, O2 Sat - 98 %, Pain - 0, Fatigue - 0 and BP - 122/ 72 mm(hg). Physical Exam: AAOx3. Skin intact. Imaging: Radiation therapy imaging related to accurate target localization (i.e. KV, MV and CBCT) was reviewed. Appropriate changes, if any, were made to ensure treatment accuracy. Plan: Will complete SBRT treatments on 07/03/2025. RTC in 1 month or sooner if need be. Signed by: Navdeep Ibarra 07/01/2025 2:38:45 PM
== END 2025-07-01 23:59 | disposition home or self-care (01) ==
PROVIDERS: PCP Nurse Practitioner Family; Visit Provider Radiology Radiation Oncology
DX: Z51.0 Encounter for antineoplastic radiation therapy (principal); C34.12 Malignant neoplasm of upper lobe, left bronchus or lung
CPT/HCPCS: 77300; 77301; 77334; 77338; 77373; 77470; 99024; 99205

== ENCOUNTER 2025-07-03 07:33 | Oncology outpatient (recurring) (ONCR) | payer MEDICARE, SELFPAY ==
--- NOTE | 2025-07-08 08:42 | N.ONRD TS_ITS ---
Radiation Oncology Treatment Summary Patient: Tashi Scott MR#: [id number] : 1955 Age: 69 Sex: Female Dictated by: Navdeep Ibarra Date of Service: 07/03/2025 Referring Physician(s) : Dr. Kearney Diagnosis: C34.12 - Malignant neoplasm of upper lobe, left bronchus or lung, Diagnosed 06/12/2025 (Active) Radiotherapy to Date: Course: Left UL, Treatment Site: [facility] [facility] SBRT, Ref. ID: [id number], Energy: 6X, Dose/Fx (cGy): 1,200, #Fx: 4 / 4, Dose Correction (cGy): 0, Total Dose Delivered (cGy): 4,800, Start Date: 06/26/2025, End Date: 07/03/2025, Elapsed Days: 7 Clinical Summary: The patient tolerated RT well. No voice complaints. Plan: End of treatment today. Continue on the above medication until the skin reaction resolves. Follow up in one month. Signed by: Navdeep Ibarra>07/08/2025 8:41:04 AM <<Signature on File>>
== END 2025-07-10 23:59 | disposition home or self-care (01) ==
PROVIDERS: PCP Nurse Practitioner Family; Visit Provider Radiology Radiation Oncology
DX: Z51.0 Encounter for antineoplastic radiation therapy (principal); C34.12 Malignant neoplasm of upper lobe, left bronchus or lung; Z53.9 Procedure and treatment not carried out, unspecified reason; F17.210 Nicotine dependence, cigarettes, uncomplicated; C34.92 Malignant neoplasm of unspecified part of left bronchus or lung
CPT/HCPCS: 77336; 77373